=== PATIENT | female | born 1995 | race Caucasian/White ===

== ENCOUNTER 2020-10-08 | Emergency (ER) | payer BC ==
[~2020-10-08] VITALS: Ht 160 cm; Wt 81.6 kg
[2020-10-08 00:10] VITALS: BP_SYST 102
[2020-10-08 00:55] LABS: BILIRUBIN,URINE NEGATIVE (NEGATIVE); BLOOD, URINE 2+ (NEGATIVE); COLOR,URINE YELLOW (YELLOW); GLUCOSE,URINE NEGATIVE (NEGATIVE); KETONES,URINE NEGATIVE (NEGATIVE); LEUKOCYTE ESTERASE ,URINE NEGATIVE (NEGATIVE); NITRITE, URINE NEGATIVE (NEGATIVE); PH,URINE 7.5 (5.0-8.0); PROTEIN URINE NEGATIVE (NEGATIVE); UROBILINOGEN,URINE 0.2 (0.2-1.0)
[2020-10-08 00:59] LABS: CLARITY/URINE HAZY (CLEAR)
[2020-10-08 01:17] LABS: BACTERIA,URINE FEW /HPF (None Seen); WBC,URINE 0-3 /HPF (0-3)
[2020-10-08 02:10] LABS: BASOPHILS % (AUTO) 0.4 % (0.0-2.0); EOSINOPHILS # (AUTO) 0.1 K/uL (0.0-0.4); HEMATOCRIT 39.9 % (36-48); HEMOGLOBIN 13.6 g/dL (12.0-16.0); LYMPHOCYTES # (AUTO) 2.7 K/uL (1.0-5.5); LYMPHOCYTES % (AUTO) 39.3 % (20.5-51.5); MEAN CORPUSCULAR HEMOGLOBIN 29 pg (27-31); MEAN CORPUSCULAR HGB CONC 34 % (32-36); MEAN CORPUSCULAR VOLUME 86 fL (79.0-98.0); MONOCYTES # (AUTO) 0.6 K/uL (0.0-1.0); MONOCYTES % (AUTO) 8.2 % (1.7-9.3); NEUTROPHILS # (AUTO) 3.4 K/uL (1.8-7.7); NEUTROPHILS % (AUTO) 50.1 % (40.0-70.0); PLATELET COUNT (AUTO) 258 K/uL (130-430); RED BLOOD CELL COUNT(AUTO) 4.66 MIL/uL (4.2-6.2); RED CELL DISTRIBUTION WIDTH 13.4 % (9.0-15.0); WHITE BLOOD COUNT (AUTO) 6.8 K/uL (4.8-10.8)
[2020-10-08] MEDS ORDERED: ACETAMINOPHEN 500 MG TABLET PO ONE (02:15)
[2020-10-08 02:34] LABS: CREATININE 0.76 mg/dL (0.55-1.30); POTASSIUM 3.8 mmol/L (3.5-5.1)
[2020-10-08] MEDS: traMADol HCL HCL 50 MG TABLET (ULTRAM) PO ONE (02:38)
[2020-10-08 02:40] LABS: ALBUMIN 3.9 g/dL (3.4-4.8); TOTAL BILIRUBIN 0.2 mg/dL (0.0-1.0)
[2020-10-08] MEDS ORDERED: TRAM50TA2 PO (02:56)
[2020-10-08] MEDS ORDERED: CYCL-10 PO (02:58)
[2020-10-08 03:12] VITALS: BP_SYST 106
== END 2020-10-08 03:12 | disposition home or self-care (01) ==
LOC: SED
DX: M54.6 Pain in thoracic spine (principal); Z79.899 Other long term (current) drug therapy
CPT/HCPCS: 36415; 80053; 81000; 81025; 85025; 99283

== ENCOUNTER 2020-11-05 13:53 | Emergency (ER) | payer BC ==
[~2020-11-05] VITALS: Ht 160 cm; Wt 83.9 kg
[~2020-11-05 13:53] MED LIST: CYCL10TA24 PO; TRAM50TA2 PO
[2020-11-05 14:00] VITALS: BP_SYST 122
--- NOTE | 2020-11-05 14:00 | NUR ---
Patient triaged and placed in waiting room. VSS and patient appears in no acute distress at this time. Accompanied by SELF, awaiting available bed, and MD notified of need for MSE.
--- NOTE | 2020-11-05 14:20 | NUR ---
PT STATES THAT SHE WAS SEEN HERE ON 10/08 FOR LEFT SIDED FLANK PAIN. GIVEN FLEXERIL AND TRAMADOL. STILL HAVING SAME PAIN BUT NOW ITS RADIATING TO ABOVE UMBILICUS AND TO MID BACK.
--- NOTE | 2020-11-05 15:07 | NUR ---
DR WILLS OUT TO TRIAGE TO EVALUATE PT.
[2020-11-05] MEDS ORDERED: KETOROLAC TROMETHAMINE 30 MG VIAL IM ONE (15:30)
--- NOTE | 2020-11-05 15:45 | NUR ---
BROUGHT BACK TO BED #7 AND REPORT GIVEN TO JOSE
--- NOTE | 2020-11-05 15:52 | NUR ---
Urine specimen collected and sent to lab for analysis.
--- NOTE | 2020-11-05 16:00 | NUR ---
Blood drawn and sent to lab for analysis.
--- NOTE | 2020-11-05 16:15 | NUR ---
KALANI completed and are awaiting results.
[2020-11-05 16:18] LABS: BASOPHILS # (AUTO) 0.1 K/uL (0.0-0.2); BASOPHILS % (AUTO) 1.8 % (0.0-2.0); EOSINOPHILS # (AUTO) 0.1 K/uL (0.0-0.4); EOSINOPHILS % (AUTO) 1.2 % (0.0-4.0); HEMATOCRIT 40.2 % (36-48); HEMOGLOBIN 13.8 g/dL (12.0-16.0); LYMPHOCYTES # (AUTO) 1.6 K/uL (1.0-5.5); LYMPHOCYTES % (AUTO) 26.5 % (20.5-51.5); MEAN CORPUSCULAR HEMOGLOBIN 29 pg (27-31); MEAN CORPUSCULAR HGB CONC 34 % (32-36); MEAN CORPUSCULAR VOLUME 84 fL (79.0-98.0); MONOCYTES # (AUTO) 0.5 K/uL (0.0-1.0); MONOCYTES % (AUTO) 7.6 % (1.7-9.3); NEUTROPHILS # (AUTO) 3.8 K/uL (1.8-7.7); NEUTROPHILS % (AUTO) 62.9 % (40.0-70.0); PLATELET COUNT (AUTO) 253 K/uL (130-430); RED BLOOD CELL COUNT(AUTO) 4.78 MIL/uL (4.2-6.2); RED CELL DISTRIBUTION WIDTH 12.8 % (9.0-15.0)
--- NOTE | 2020-11-05 16:30 | NUR ---
U/S at bedside currently.
[2020-11-05 16:37] LABS: BILIRUBIN,URINE NEGATIVE (NEGATIVE); CLARITY/URINE SL CLOUDY (CLEAR); COLOR,URINE YELLOW (YELLOW); GLUCOSE,URINE NEGATIVE (NEGATIVE); KETONES,URINE NEGATIVE (NEGATIVE); LEUKOCYTE ESTERASE ,URINE NEGATIVE (NEGATIVE); NITRITE, URINE NEGATIVE (NEGATIVE); PROTEIN URINE NEGATIVE (NEGATIVE); UROBILINOGEN,URINE 0.2 (0.2-1.0)
[2020-11-05 16:43] LABS: CALCIUM 8.9 mg/dL (8.4-11.0); CREATININE 0.79 mg/dL (0.55-1.30); POTASSIUM 3.9 mmol/L (3.5-5.1)
[2020-11-05 16:53] LABS: ALBUMIN 4.1 g/dL (3.4-4.8); TOTAL BILIRUBIN 0.3 mg/dL (0.0-1.0)
[2020-11-05 17:06] LABS: BLOOD, URINE TRACE (NEGATIVE)
--- NOTE | 2020-11-05 17:35 | NUR ---
Pt resting quietly in no distress awaiting results.
[2020-11-05 17:47] LABS: BACTERIA,URINE MANY /HPF (None Seen); RBC,URINE 0-3 /HPF (0-3)
[2020-11-05 17:48] LABS: YEAST,URINE Rare /HPF (None Seen)
[2020-11-05 17:49] LABS: MUCUS,URINE None Seen /LPF (None Seen)
[2020-11-05] MEDS ORDERED: METH-634 PO (18:10)
[2020-11-05] MEDS ORDERED: OMEP20CA15 PO (18:10)
[2020-11-05 18:23] VITALS: BP_SYST 122
--- NOTE | 2020-11-05 18:23 | NUR ---
Patient given written and verbal discharge instructions and verbalizes understanding. Dr. Cortes WILHELM MD discussed with patient the results and treatment provided. Patient in stable condition. ID arm band removed. Rx per MD given. Patient educated on pain management and to follow up with PMD. Pain Scale 0/10. Opportunity for questions provided and answered. Medication side effect fact sheet provided.
== END 2020-11-05 18:23 | disposition home or self-care (01) ==
LOC: SED 13:53
DX: R10.12 Left upper quadrant pain (principal); M54.5 Low back pain; Z79.899 Other long term (current) drug therapy
CPT/HCPCS: 36415; 74018; 76770; 80053; 81000; 81025; 83690; 85025; 87086; 96372; 99285; J1885